=== PATIENT | female | born 1995 | race Two or more races ===

== ENCOUNTER → 2021-01-09 | Outpatient (CLI) | payer OTHER | END | disposition home or self-care (01) | LOC: PRENATAL 11:00 | PROVIDERS: ATTEND Obstetrics & Gynecology Maternal & Fetal Medicine | DX: O35.0XX1 Maternal care for (suspected) central nervous system malformation in fetus, fetus 1 (principal); O35.3XX1 Maternal care for (suspected) damage to fetus from viral disease in mother, fetus 1; O98.512 Other viral diseases complicating pregnancy, second trimester; O09.212 Supervision of pregnancy with history of pre-term labor, second trimester; O26.852 Spotting complicating pregnancy, second trimester; Z36.89 Encounter for other specified antenatal screening; Z3A.23 23 weeks gestation of pregnancy ==

== ENCOUNTER 2021-08-04 07:16 | Day surgery (SDC) | payer OTHER | END 2021-08-04 13:10 | disposition home or self-care (01) | LOC: CIR.AMB 07:16 → SURH 15:11 → EDSTATUS 15:18 → CIR.AMB 15:19 | PROVIDERS: ATTEND Specialist | DX: O02.1 Missed abortion (principal); Z20.822 Contact with and (suspected) exposure to COVID-19 ==

== ENCOUNTER 2022-03-30 20:58 | Emergency (ER) | payer OTHER ==
[~2022-03-30] VITALS: Ht 149.9 cm; Wt 51.7 kg
[2022-03-30] MEDS ORDERED: PRENA1 CHEW TA1.4 MG PO (21:28)
[2022-03-30] MEDS ORDERED: IRON325 MG PO (21:29)
[2022-03-30] MEDS ORDERED: BENADRYL ITCH C59 ML TOP (23:48)
== END 2022-03-31 00:10 | disposition home or self-care (01) ==
LOC: ER 20:58
DX: L50.9 Urticaria, unspecified (principal); Z91.013 Allergy to seafood

== ENCOUNTER 2022-04-16 11:12 | Inpatient (IN) | payer OTHER ==
[~2022-04-16] VITALS: Ht 149.9 cm; Wt 0.9 kg
[~2022-04-16 11:12] MED LIST: BENADRYL ITCH C59 ML TOP; IRON325 MG PO; PRENA1 CHEW TA1.4 MG PO
== END 2022-04-18 15:53 | disposition home or self-care (01) | DRG 805 ==
LOC: OBS/DEL 11:12 → OB/GYN 12:31 → OBS/DEL 12:31 → LDR 12:31 → OB/GYN 04-17 02:30
PROVIDERS: ADMIT Specialist; ATTEND Specialist
PROC: 4A1HXCZ Monitoring of Products of Conception, Cardiac Rate, External Approach (ICD-10-PCS; 2022-04-16)
PROC: BY4CZZZ Ultrasonography of Second Trimester, Single Fetus (ICD-10-PCS; 2022-04-16)
PROC: BU4CZZZ Ultrasonography of Uterus and Ovaries (ICD-10-PCS; 2022-04-16)
PROC: 10E0XZZ Delivery of Products of Conception, External Approach (ICD-10-PCS; principal; 2022-04-17)
DX: O42.012 Preterm premature rupture of membranes, onset of labor within 24 hours of rupture, second trimester (principal); O60.12X0 Preterm labor second trimester with preterm delivery second trimester, not applicable or unspecified; Z37.0 Single live birth; O41.1220 Chorioamnionitis, second trimester, not applicable or unspecified; O32.8XX0 Maternal care for other malpresentation of fetus, not applicable or unspecified; O26.842 Uterine size-date discrepancy, second trimester; Z3A.26 26 weeks gestation of pregnancy; Z20.822 Contact with and (suspected) exposure to COVID-19

== ENCOUNTER 2024-05-19 12:19 | Emergency (ER) | payer OTHER ==
[~2024-05-19] VITALS: Ht 149.9 cm; Wt 53.5 kg
[2024-05-19] MEDS ORDERED: FOLIC ACID0.8 M1 (12:27)
[2024-05-19 14:55] LABS: HEMATOCRIT 35.5 % (36.0-45.00); HEMOGLOBIN 12.1 g/dL (12.0-15.00); MEAN CELL VOLUME 89.1 fL (80.00-100.00); MEAN CORPUSCULAR HEMOGLOBIN 30.5 pg (27.00-32.0); MEAN CORPUSCULAR HGB CONC 34.2 g/dl (32.0-36.0); PLATELET COUNT 265 K/uL (150-450); RED BLOOD COUNT 3.98 M/uL (4.00-6.00); RED CELL DISTRIBUTION WIDTH 14.1 % (11.5-14.5)
[2024-05-19 15:10] LABS: URINE APPEARANCE Clear; URINE BILIRRUBIN Negative (NEGATIVE); URINE BLOOD Small; URINE COLOR Yellow; URINE GLUCOSE Negative (NEGATIVE); URINE KETONE Trace (NEGATIVE); URINE LEUKOCYTE Negative; URINE NITRATE Negative; URINE PROTEIN Trace (NEGATIVE)
[2024-05-19 15:14] LABS: URINE EPITHELIAL CELLS 30.2 uL (0.0-38.8); URINE RBC 41.3 uL (0.0-20.8); URINE WBC 28.7 uL (0.0-23.2)
[2024-05-19 15:20] LABS: URINE CAST 1.22 uL (0.0-1.40)
[2024-05-19 15:23] LABS: CALCIUM 9.4 mg/dL (8.5-10.1); CREATININE SERUM 0.55 mg/dL (0.55-1.02); GFR 131.61; POTASSIUM 3.92 mEq/L (3.5-5.1)
== END 2024-05-19 16:45 | disposition home or self-care (01) ==
LOC: ER 12:20
PROVIDERS: General Practice
DX: O20.8 Other hemorrhage in early pregnancy (principal); Z3A.08 8 weeks gestation of pregnancy; Z91.013 Allergy to seafood